=== PATIENT | male | born 1995 | race Caucasian/White ===

== ENCOUNTER 2025-10-05 09:07 | Emergency (ER) | payer BC, SELFPAY ==
[~2025-10-05] VITALS: Ht 172.7 cm; Wt 112.6 kg
[2025-10-05] MEDS: MORPHINE 4 MG/ML 1 ML VIAL IV ONE (12:10)
[2025-10-05] MEDS: NS (Normal Saline) 0.9% 1,000 ML IV ONE (12:10)
[2025-10-05] MEDS: PANTOPRAZOLE 40MG VIAL IV ONE (12:10)
[2025-10-05 12:25] LABS: BASO # 0.0 10^3/uL (0.0-0.2); BASO % 0.7 % (0.0-1.0); EOS # 0.1 10^3/uL (0.0-0.5); EOS % 1.4 % (0.0-3.0); LYMPH # 1.3 10^3/uL (1.5-5.0); LYMPH % 23.1 % (24.0-44.0); MONO # 1.1 10^3/uL (0.0-0.8); MONO % 19.9 % (2.0-8.0); NEUTROPHILS # 3.0 10^3/uL (1.5-8.5); NEUTROPHILS % 54.4 % (36.0-66.0); PLATELET COUNT, AUTOMATED 257 10^3/uL (150-450)
[2025-10-05] MEDS ORDERED: ISOVUE-370 76% 100 ML VIAL As Ordered ONE (12:32)
[2025-10-05 12:54] LABS: INR 0.96
[2025-10-05 12:56] LABS: ALT/SGPT 43.0 U/L (7.0-40); AST/SGOT 25.0 U/L (<34)
[2025-10-05] MEDS ORDERED: AZIT500T5 PO (13:27)
[2025-10-05] MEDS ORDERED: PANT40TA29 PO (13:27)
[2025-10-05 13:30] VITALS: BP 128/66; O2SAT 98
[2025-10-05 13:40] VITALS: TEMP 98.2
== END 2025-10-05 13:49 | disposition home or self-care (01) ==
LOC: M ED 09:07
DX: A04.5 Campylobacter enteritis (principal); Z79.2 Long term (current) use of antibiotics; Z79.899 Other long term (current) drug therapy
CPT/HCPCS: 74174; 80047; 80076; 83605; 83690; 85025; 85610; 85730; 86850; 86900; 86901; 87507; 93005; 96361; 96374; 99284; J2470; Q9967